=== PATIENT | male | born 1995 | race African-American/Black ===

== ENCOUNTER 2021-01-25 19:24 | Emergency (ER) | payer OTHER ==
[~2021-01-25] VITALS: Ht 185.4 cm; Wt 70.3 kg
[~2021-01-25 19:24] MED LIST: BACTRIM DS TAB1 EACH PO; DOXYCYCLINE 10100 M1 PO; IBUPROFEN 800800 MG PO; NORCO 5-325 TA1 EACH PO
[2021-01-25] MEDS ORDERED: NORCO5 PO (22:02)
[2021-01-25] MEDS ORDERED: BACTRIM DS TAB1 EAC1 PO (22:02)
== END 2021-01-25 22:15 | disposition home or self-care (01) ==
LOC: ER 19:24
DX: L02.412 Cutaneous abscess of left axilla (principal); Z79.899 Other long term (current) drug therapy

== ENCOUNTER 2021-01-28 13:24 | Emergency (ER) | payer OTHER ==
[~2021-01-28] VITALS: Ht 182.9 cm; Wt 72.6 kg
[~2021-01-28 13:24] MED LIST changes: +BACTRIM DS TAB1 EAC1 PO; +NORCO5 PO
== END 2021-01-28 15:05 | disposition home or self-care (01) ==
LOC: ER 13:24
DX: L02.412 Cutaneous abscess of left axilla (principal)